=== PATIENT | female | born 1965 | race African-American/Black ===

== ENCOUNTER 2018-07-18 15:34 | Emergency (ER) | payer MEDICAID ==
[~2018-07-18] VITALS: Ht 152.4 cm; Wt 90.7 kg
[~2018-07-18 15:34] MED LIST: ALLO100T; DOCU1CAP54; LISI10TA6 PO; OXYB5TAB61; SIMV-8 PO; TRAM50TA2
[2018-07-18 15:52] VITALS: BP 120/70
== END 2018-07-18 17:24 | disposition home or self-care (01) ==
LOC: ER 15:34
DX: J02.9 Acute pharyngitis, unspecified (principal); M10.9 Gout, unspecified; E78.5 Hyperlipidemia, unspecified; I10 Essential (primary) hypertension; Z90.49 Acquired absence of other specified parts of digestive tract; Z79.899 Other long term (current) drug therapy

== ENCOUNTER 2018-09-15 04:44 | Emergency (ER) | payer MEDICAID ==
[~2018-09-15] VITALS: Ht 152.4 cm; Wt 99.8 kg
[2018-09-15 05:19] LABS: Urine Bacteria MOD /hpf (None Seen); Urine Blood Negative /uL (Negative); Urine Mucus FEW (None Seen); Urine WBC 102 /hpf (0 - 5); Urine WBC Clumps PRESENT /hpf (None Seen)
[2018-09-15] MEDS ORDERED: FLUORESCEIN SOD 1 MG TEST STRIP LEFTEYE ONE (06:30)
[2018-09-15] MEDS ORDERED: TETRACAINE HCL 0.5% OPTH(EYE) SOLN 4ML LEFTEYE ONE (06:30)
[2018-09-15 07:01] VITALS: BP 111/53
== END 2018-09-15 07:55 | disposition home or self-care (01) ==
LOC: ER 04:44
DX: S05.02XA Injury of conjunctiva and corneal abrasion without foreign body, left eye, initial encounter (principal); S05.01XA Injury of conjunctiva and corneal abrasion without foreign body, right eye, initial encounter; N39.0 Urinary tract infection, site not specified; E78.5 Hyperlipidemia, unspecified; I10 Essential (primary) hypertension; Z79.899 Other long term (current) drug therapy; Z90.49 Acquired absence of other specified parts of digestive tract; X58.XXXA Exposure to other specified factors, initial encounter; Y93.89 Activity, other specified; Y92.89 Other specified places as the place of occurrence of the external cause; Y99.8 Other external cause status
CPT/HCPCS: 81001; 87086

== ENCOUNTER 2018-10-25 10:09 | Emergency (ER) | payer MEDICAID ==
[~2018-10-25] VITALS: Ht 152.4 cm; Wt 99.8 kg
[2018-10-25 10:17] VITALS: BP 147/75
== END 2018-10-25 11:13 | disposition home or self-care (01) ==
LOC: ER 10:09
DX: I10 Essential (primary) hypertension (principal); R42 Dizziness and giddiness; E78.5 Hyperlipidemia, unspecified; Z90.49 Acquired absence of other specified parts of digestive tract; Z79.899 Other long term (current) drug therapy
CPT/HCPCS: 93005

== ENCOUNTER 2018-11-18 08:49 | Emergency (ER) | payer MEDICAID ==
[~2018-11-18] VITALS: Ht 175.3 cm; Wt 99.8 kg
[~2018-11-18 08:49] MED LIST changes: +DOCU1CAP46; -DOCU1CAP54
[2018-11-18 08:55] VITALS: BP 147/89
== END 2018-11-18 10:01 | disposition home or self-care (01) ==
LOC: ER 08:49
DX: J32.9 Chronic sinusitis, unspecified (principal); I10 Essential (primary) hypertension; E78.5 Hyperlipidemia, unspecified; F12.10 Cannabis abuse, uncomplicated; Z90.49 Acquired absence of other specified parts of digestive tract

== ENCOUNTER 2018-11-27 17:45 | Emergency (ER) | payer MEDICAID ==
[~2018-11-27] VITALS: Ht 154.9 cm; Wt 99.8 kg
[2018-11-28 00:01] VITALS: BP 143/69
== END 2018-11-28 01:04 | disposition home or self-care (01) ==
LOC: ER 17:57
DX: H69.83 Other specified disorders of Eustachian tube, bilateral (principal); E78.5 Hyperlipidemia, unspecified; I10 Essential (primary) hypertension; F12.10 Cannabis abuse, uncomplicated; Z90.49 Acquired absence of other specified parts of digestive tract
CPT/HCPCS: 70450

== ENCOUNTER 2018-12-02 11:44 | Emergency (ER) | payer MEDICAID ==
[~2018-12-02] VITALS: Ht 152.4 cm; Wt 99.8 kg
[2018-12-02 12:09] VITALS: BP 151/95
== END 2018-12-02 14:22 | disposition home or self-care (01) ==
LOC: ER 11:44
DX: H61.21 Impacted cerumen, right ear (principal); I10 Essential (primary) hypertension; M10.9 Gout, unspecified; E78.5 Hyperlipidemia, unspecified; F12.90 Cannabis use, unspecified, uncomplicated; Z90.49 Acquired absence of other specified parts of digestive tract; Z79.899 Other long term (current) drug therapy

== ENCOUNTER 2023-08-16 14:04 | Emergency (ER) | payer MEDICAID, OTHER ==
[~2023-08-16] VITALS: Ht 149.9 cm; Wt 115.1 kg
[~2023-08-16 14:04] MED LIST changes: +LISI10TA34 PO; -LISI10TA6 PO; +OXYB5TAB14; -OXYB5TAB61; -SIMV-8 PO; +SIMV20TA20 PO
[2023-08-16 14:33] VITALS: BP 138/74; PULSE 90; RESP 18; TEMP 99; O2SAT 93
[2023-08-16] MEDS: cefTRIAXone SOD 1,000 MG VL IM ONE (14:46)
[2023-08-16] MEDS ORDERED: LIDO2SOL26 MT (14:57)
[2023-08-16] MEDS ORDERED: CEPH500C PO (14:57)
== END 2023-08-16 15:06 | disposition home or self-care (01) ==
LOC: ER 14:04
DX: J03.90 Acute tonsillitis, unspecified (principal); E11.9 Type 2 diabetes mellitus without complications; E78.5 Hyperlipidemia, unspecified; I10 Essential (primary) hypertension; F12.10 Cannabis abuse, uncomplicated; Z90.49 Acquired absence of other specified parts of digestive tract
CPT/HCPCS: 96372; 99283; J0696

== ENCOUNTER 2024-04-09 05:05 | Emergency (ER) | payer OTHER ==
[~2024-04-09] VITALS: Ht 175.3 cm; Wt 113.6 kg
[~2024-04-09 05:05] MED LIST changes: +CEPH500C PO; +LIDO2SOL26 MT
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
[2024-04-09 06:20] LABS: Basophils # (auto) 0 10 ^3/uL (0-0.2); Basophils % (auto) 1.3 % (0.0-2.0); Eosinophils # (auto) 0 10 ^3/uL (0-0.8); Eosinophils % (auto) 1.1 % (0.0-7.0); Hematocrit 44.1 % (36.0-46.0); Hemoglobin 14.8 g/dL (12.2-16.2); Lymphocytes # (auto) 1.4 10 ^3/uL (0.4-5.4); Lymphocytes % (auto) 39.7 % (10.0-50.0); Mean Corpuscular Hemoglobin 29.4 pg (28.0-32.0); Mean Corpuscular Hgb Conc. 33.6 g/dL (32.0-36.0); Mean Corpuscular Volume 87.6 fL (80.0-100.0); Monocytes # (auto) 0.4 10 ^3/uL (0-1.3); Neutrophils # (auto) 1.7 10 ^3/uL (1.6-8.6); Neutrophils % (auto) 47.9 % (37.0-80.0); Nucleated Red Blood Cells % 0.2 %; Platelet Count (auto) 256 10^3/uL (140-450); Red Blood Cells 5.03 10^6/uL (4.0-5.20); Red Cell Distribution Width 13.7 % (11.8-14.3); White Blood Cell 3.6 10^3/uL (4.4-10.8)
--- NOTE | 2024-04-09 06:28 | ECG ---
[facility] Test Date: 2024-04-09 Test Time: 05:12:12 Pat Name: RONAK MAYNARD Department: ER Room: Gender: F Acetylene Operator: ER : 1965 Requested By: SNEHAL OJEDA Order Number: [id number] Reading MD: Fabio Montiel Measurements Intervals Thayer Rate: 80 P: 73 ID: [id number] QRS: 0 QRSD: 93 T: 64 QT: 397 QTc: 458 Interpretive Statements Sinus rhythm Electronically Signed On 04-11-2024 17:05:00 PST by Fabio Montiel Please click the below link to view image of tracing.
[2024-04-09 06:42] LABS: Sodium 141 mmol/L (136-145)
[2024-04-09 06:43] LABS: Anion Gap 2 (5-15); Calcium 9.6 mg/dL (8.7-10.4); Carbon Dioxide 31 mmol/L (20-31)
[2024-04-09 06:48] LABS: BUN/Creatinine Ratio 13.3 (10.0-20.0); Blood Urea Nitrogen 12 mg/dL (9-23); Glucose 105 mg/dL (74-106)
--- NOTE | 2024-04-09 06:59 | DVH ---
CHEST RADIOGRAPH Indication: near syncope Technique: Single frontal view of the chest was obtained Comparison: None FINDINGS: Lines and Tubes: None Lungs: No focal consolidation. Pleura: No effusion. No pneumothorax. Cardiomediastinal contours: Unremarkable Bones: No acute osseous abnormality. IMPRESSION: No acute cardiopulmonary disease.
[2024-04-09 07:03] LABS: Chloride 108 mmol/L (98-107); Potassium 3.5 mmol/L (3.5-5.1)
[2024-04-09 08:38] VITALS: PULSE 80; RESP 16; O2SAT 99
[2024-04-09 08:53] LABS: Urine Bacteria FEW /hpf (None Seen); Urine Blood Negative /uL (Negative); Urine Clarity Clear (Clear); Urine Color Light-Yellow (Yellow); Urine Mucus FEW (None Seen); Urine Protein, UAD Negative (Negative); Urine Specific Gravity 1.014 (1.001-1.035); Urine Squamous Epithelial Cell FEW /hpf (<5); Urine Urobilinogen Normal (Negative); Urine WBC 3 /HPF (0-5); Urine pH 5.5 (5.0-9.0)
--- NOTE | 2024-04-09 13:55 | DVH ---
EXAM: CT HEAD WITHOUT CONTRAST HISTORY: near syncope COMPARISON: None TECHNIQUE: Axial images of the head were obtained and reformatted in coronal and sagittal planes. All CT scans at this medical facility are performed using dose modulation techniques as appropriate t o a performed exam including the following: Automated exposure control was utilized; adjustment of th e MA and/or KV according to patient size; and use of iterative reconstruction technique. CT Dose: CTDI volume is 53.82 mGy. Dose-length product is 972.13 mGy*cm FINDINGS: There is no evidence of acute intracranial hemorrhage, mass, mass effect midline shift. There is no h ydrocephalus or extra-axial fluid collection. Miller-white matter differentiation is maintained. The visualized paranasal sinuses and mastoid air cells are clear. The calvarium is intact. IMPRESSION: 1. No acute intracranial process. HS:Y
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
[2024-04-09 16:08] VITALS: BP 151/104; PULSE 81; RESP 18; TEMP 99; O2SAT 98
== END 2024-04-09 16:14 | disposition home or self-care (01) ==
LOC: ER 05:05 → EDBD 05:05 → ER 16:14
DX: R55 Syncope and collapse (principal); R42 Dizziness and giddiness; H53.8 Other visual disturbances; E11.9 Type 2 diabetes mellitus without complications; M10.9 Gout, unspecified; E78.5 Hyperlipidemia, unspecified; I10 Essential (primary) hypertension; E66.9 Obesity, unspecified; Z90.49 Acquired absence of other specified parts of digestive tract; Z68.37 Body mass index [BMI] 37.0-37.9, adult
CPT/HCPCS: 36415; 70450; 71045; 80048; 81001; 84484; 85025; 93005